=== PATIENT | female | born 1965 | race Caucasian/White ===

== ENCOUNTER 2025-06-06 05:04 | Emergency (ER) | payer BC, SELFPAY ==
[2025-06-06 05:06] VITALS: BP 150/88
[2025-06-06 05:57] LABS: Hematocrit 40.5 % (37.0-47.0); Hemoglobin 13.7 g/dL (12.0-16.0); Mean Corp Hgb Conc. 33.8 g/dL (33.0-37.0); Mean Corpuscular Volume 88.0 fL (81.0-99.0); Nucleated Red Blood Cells % 0 %; Platelet Count 220 10^3/uL (130-400); Red Cell Dist. Width 13.7 % (11.5-14.5)
[2025-06-06 06:00] VITALS: BP 148/101
[2025-06-06 06:20] LABS: HCG, Serum Qualitative Screen Negative
[2025-06-06 06:30] LABS: ALT (SGPT) 41 U/L (0-35); AST (SGOT) 39 U/L (14-36); Albumin 4.3 g/dl (3.5-5.0); Alkaline Phosphatase 79 U/L (38-126); Blood Urea Nitrogen 22 mg/dl (7-17); Calcium 9.6 mg/dl (8.4-10.2); Carbon Dioxide 20 mmol/L (22-30); Chloride 114 mmol/L (98-107); Glucose 93 mg/dl (70-99); Lipase 525 U/L (23-300); Potassium 4.6 mmol/L (3.5-5.1); Sodium 141 mmol/L (135-145); Total Protein 6.6 g/dl (6.3-8.2); eGFR > 60.00
[2025-06-06 06:48] LABS: Magnesium 1.8 mg/dl (1.6-2.3)
--- NOTE | 2025-06-06 06:50 | ED.GENMED ---
History of Present Illness
General
Chief Complaint: Abdominal Symptoms
Source: patient
Exam Limitations: none
Time Seen by Provider: 06/06/25 06:03
Nursing documentation reviewed up to this point in time: agreed with
History of Present Illness
History of Present Illness:
pt is a 60 y/o F with h/o IBS, p SVT s/p ablations, barretts
here with 5ish weeks of waxing and waning GI symptoms
started with n/v/d x 3 days which she thought was viral
she has had these symptoms persistent since with different intensities
more recently the past 4-5 days she has sometimes had diarrhea up to 17 episodes in short time; watery, foul smelling, not bloody
she has a constant burning pain throughout her abdomen
she has had n/v as well and has been 'popping zofran like candy' whichi s her mom's rx
pt had no recent travel before this started, no recent abx
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
pt's mom has cancer but is not hospitalized
called her [facility] who can't get her in for 2 mo
has called her PCP and was told to go to
Past History
Past History
ED Past Medical History: Arrthythmia and Other (Kidney stone, IBS)
ED Past Surgical History: Cardiac (Ablation) and Gynecological
Social History
Tobacco: Non-smoker
Alcohol: Occasional
Drug: None
Personal:
Living: with family
Employment: Employed
Family History
Family History: Hypertension
Review of Systems
Review of Systems
Allergies reviewed?: Yes
All Other Systems: Not applicable
Constitutional: Reports weight loss and fatigue
ABD/GI: Reports abdominal pain, nausea, vomiting and diarrhea; Denies bloody stools, black stools or anorexia
Phy Exam
Physical Exam
Physical Exam:
GENERAL: Alert , in no apparent distress
EYE: pupils equal and reactive
NECK: Supple
ENT: o/p clr, mmm.
CARDIAC: Regular rate and rhythm ., no tachycardia
LUNGS: Clear breath sounds bilaterally, no acute respiratory distress, no wheezes/rales/rhonchi
ABDOMEN: Soft, without focal tenderness, no r/g, no cvat, hyperacive bowel sounds
NEUROLOGICAL: Alert and oriented, no focal neuro deficits
SKIN: Warm and dry, skin intact.
MUSCULOSKELETAL: No edema, well perfused. neg gumaro's sign
PSYCH: Normal and appropriate interaction.
Course
Orders/Labs/Results
Orders:
Orders
06/06/25 05:47
IV Insert/Care/Rem.- Treatment PRN
Test Result ONCE
06/06/25 05:50
Complete Blood Count/With Diff Urgent
Comprehensive Metabolic Panel Urgent
HCG, Serum Qualitative Screen Urgent
Comment: Notify provider if positive test present
Lipase Urgent
Magnesium Urgent
Comment: ADD ON
06/06/25 06:30
Add On- LAB Urgent
Tests Added?: magnesium
Electrocardiogram (*1) Urgent
Reason for Study: Abdominal Pain
EKG- Treatment ONCE
0.9% Sodium Chloride 1000 ml [Nss] 1,000 ml IV BOLUS
Dicyclomine HCl [Bentyl] 20 mg IM NOW STA
06/06/25 06:32
CT Abd/Pel (IV only)-DH only Urgent
Comment:
Reason For Exam: abd pain, n/v/d 5 weeks
06/06/25 06:42
C difficile Antigen & Toxins Urgent
JUDI Source: Feces/Stool
Specimen Description:
Date Specimen was Collected: 06/06/25
Time Specimen was Collected: 05:48
Ova & Parasites Giardia/Crypto AG [Giardia/Cryptosporidium Ag] Urgent
JUDI Source: Feces/Stool
Specimen Description:
Date Specimen was Collected: 06/06/25
Time Specimen was Collected: 06:34
Stool Culture Urgent
JUDI Source: Feces/Stool
Specimen Description:
Date Specimen was Collected: 06/06/25
Time Specimen was Collected: 06:34
06/06/25 06:56
Ondansetron Injectable [Zofran] 4 mg IV NOW STA
06/06/25 08:04
US Abdomen Complete/Upper Urgent
Comment:
Reason For Exam: vomiting, elev LFTs; eval sonido
06/06/25 10:27
Urinalysis Reflex To Culture Urgent
Date Specimen was Collected: 06/06/25
Time Specimen was Collected: 05:47
06/06/25 10:29
Amoxicillin 875 mg/Clav 125 mg [Augmentin 875 mg/125 mg] 1 tablet PO NOW STA
Diphenoxylate / Atropine [Lomotil] 1 tablet PO NOW STA
Abnormal Lab Results
06/06/25
05:50
WBC 4.5 L 10^3/uL
(4.8-10.8)
MPV 10.5 H fL
(7.4-10.4)
Eosinophils % 9.1 H %
(0-6)
Chloride 114 H mmol/L
(98-107)
Carbon Dioxide 20 L mmol/L
(22-30)
BUN 22 H mg/dl
(7-17)
AST 39 H U/L
(14-36)
ALT 41 H U/L
(0-35)
Lipase 525 H U/L
(23-300)
06/06/25 05:50
06/06/25 05:50
Vital Signs
Initial and Last Documented VS:
Initial Vital Signs
Temp Pulse Resp BP Pulse Ox
36.6 C 78 24 150/88 98
06/06/25 05:06 06/06/25 05:06 06/06/25 05:06 06/06/25 05:06 06/06/25 05:06
Last Documented Vital Signs
Temp Pulse Resp BP Pulse Ox
36.6 C 61 19 114/100 98
06/06/25 05:06 06/06/25 08:15 06/06/25 08:15 06/06/25 07:40 06/06/25 07:40
MDM/Problems Addressed
Differential Diagnosis Includes:
diarrhea, SIBO, c diff, colitis, ischemia, gastroenterities;
MDM/Problems Addressed:
60 y/o F
iyer's history
5 weeks ago n/v/d illness x 3 days
got better but has had trouble off and on for weeks with occ days where she will have vomiting several times or some diarrhea
lost 10 pounds
the past 4-5 days, having 15+ loose watery stools a day and occ vomiting;
has been on imodium
no recent abx, exposures, bloody stools
well appearing
has had 6 episodes of diarrhea here
wbc 4.5
not significantly dehydrated
c diff neg
ct mild colitis
stool culture pending
spoke with dr. greer briefly who recommended augmentin for abx coverage and i recommended lomotil and dr. greer agreed;
pt is hydrated
her pain is improved
she does not meet inpatient criteria at this time
will d/c home on abx
*Pulse Oximetry
SaO2: 98
Oxygen Mode of Delivery: Room air
Patient hypoxic: no (98)
*Critical Care Note
Total Time (30-74mins, 75-104mins- exclusive of procedures): Not Applicable
ED Attending Note
-
Portions of this chart may have been created with voice recognition software.� Occasional wrong word or��sound alike� substitutions may have occurred due to the inherent limitations of voice recognition software.
Discharge Plan
Departure
Patient Disposition: Home (Routine Discharge)
Date of Disposition: 06/06/25
Time of Disposition: 10:29
Patient with high blood pressure during this ER visit?: Yes
Condition: Fair
Covid-19: Not Applicable
Discharge Problem:
Diarrhea
Instructions: Diarrhea in teens and adults, Nausea and Vomiting, Adult (DC)
Prescriptions:
New
diphenoxylate-atropine [Lomotil] 2.5-0.025 mg tablet
1 tab PO Q8H PRN (Reason: diarrhea) Qty: 15 0RF
amoxicillin-pot clavulanate 875-125 mg tablet
1 tab PO BID Qty: 20 0RF
No Action
pantoprazole 40 mg Tablet,Delayed Release (Dr/Ec)
40 mg PO HS
lisinopril 10 mg Tablet
10 mg PO HS
Patient Comments:
11/26/2023, patient states that she normally takes this medication at bedtime but forgot to take it last night so she took it this morning.
oxycodone-acetaminophen 5-325 mg tablet
1 tab PO Q4H PRN (Reason: moderate pain)
Patient Comments:
12/01/2023: last filled 11/26/23, 10 tabs for 2 days from [facility]
sulfamethoxazole-trimethoprim [Bactrim DS] 800-160 mg tablet
1 tab PO BID MDD 2 pills Qty: 10 0RF
Rx Instructions:
1 po bid
Referrals:
Anjelica Villegas MD [Family Provider] - Follow up in 5-7 days
Activity Restrictions/Additional Instructions:
YOUR STOOL WAS NEGATIVE FOR C DIFF BUT OTHER STUDIES ARE STILL PENDING
YOUR CAT SCAN SHOWED MILD COLITIS
TRY AUGMENTIN TWICE A DAY FOR 10 DAYS
BRAT DIET
FLUIDS TOLERATED
RATHER THAN IMODIUM, TRY LOMOTIL 3-4 times a day UNTIL DIARRHEA CONTROLLED
RETURNF OR: SEVEREP AIN, BLOODY DIARRHEA, DEHYDRATION, FEVER, ETC
OTHERWISE SEE GI.
Interventions
Interventions:
*Risk Screen - Suicide Last Done: 06/06/25 05:06
*General Assessment Last Done: 06/06/25 05:56
*Neglect/Abuse Screening Last Done: 06/06/25 05:06
*ED- Fall Risk Assessment Last Done: 06/06/25 05:56
*ED COVID-19 Vaccine History Last Done: 06/06/25 05:56
*Nursing Disposition Last Done: 06/06/25 10:51
IR-Fovjff-Pvajyzpjns Assessment Last Done: 06/06/25 05:56
Discharge Date and Time
Discharge Date/Time: 06/06/25 10:53
Print Language: ARMENIAN
[2025-06-06] MEDS: BENTYL 20 MG IM (07:32)
[2025-06-06] MEDS: ZOFRAN 4 MG IV (07:35)
[2025-06-06] MEDS: NSS 1000 IV (07:35)
[2025-06-06 07:40] VITALS: BP 114/100
[2025-06-06 10:16] VITALS: BMI 24.5
[2025-06-06] MEDS: AUGMENTIN 875 MG/125 MG 1 TABLET PO (10:38)
[2025-06-06] MEDS: LOMOTIL 1 TABLET PO (10:38)
[2025-06-06 10:45] LABS: Urine Character Clear (Clear)
== END 2025-06-06 10:53 | disposition home or self-care (01) ==
LOC: EMR 05:04
PROVIDERS: Student in an Organized Health Care Education/Training Program; EMERGENCY PHYSICIAN Emergency Medicine; FAMILY PHYSICIAN Family Medicine
DX: R19.7 Diarrhea, unspecified (principal); I47.10 Supraventricular tachycardia, unspecified; K58.9 Irritable bowel syndrome, unspecified; Z82.49 Family history of ischemic heart disease and other diseases of the circulatory system; Z87.442 Personal history of urinary calculi
CPT/HCPCS: 99284; 96374; 96372; 74177; 76700; 80053; 81003; 83690; 83735; 84703; 85025; 87045; 87046; 87077; 87324; 87328; 87329; 87427; 87449; 93005; Q9967